=== PATIENT | female | born 2000 | race Caucasian/White ===

== ENCOUNTER 2020-09-01 22:02 | Emergency (ER) | payer BC ==
[2020-09-01] MEDS ORDERED: Lidocaine 1% w/Epinephrine 1:100K 20 ML VIAL ONE (22:57)
== END 2020-09-02 00:11 | disposition home or self-care (01) ==
LOC: ERS 22:02
DX: L05.01 Pilonidal cyst with abscess (principal); J02.0 Streptococcal pharyngitis; Z79.899 Other long term (current) drug therapy
CPT/HCPCS: 10080; 87430